=== PATIENT | male | born 1985 | race Caucasian/White ===

== ENCOUNTER 2016-05-23 10:51 | Emergency (ER) | payer OTHER ==
[2016-05-23 10:57] VITALS: BP 181/110
--- NOTE | 2016-05-23 12:08 | PROVIDER DOCUMENTATION ---
HPI-Musculoskeletal Pain/Inj - GENERAL Chief Complaint: Back Pain Stated Complaint: BACK PAIN Time Seen by Provider: 05/23/16 11:57 Source: patient - HX OF PRESENT ILLNESS-MUSKULOSKELTAL Nature of Presenting Problem: patient is a 30 y/o M that presents to the ER with lower back pain (chronic in nature). Has appointment with Spine/Neuro in June. patient's pain got worse this am and took Allen 10mg that is prescribed by Quality of Pain: reports: aching, dull Severity in ED: moderate Onset/Duration: unsure Timing: still present, constant Modifying Factors: worse with: movement Any recent injury?: No Locality of Occurance: Home Similar Symptoms Previously?: Yes Recently seen or treated by another doctor?: Yes - BACK & NECK PAIN/INJURY Back/Neck Pain Location: reports: lumbar spine Context / Method of Injury: reports: overuse Associated Symptoms: reports: lower back pain. denies: loss of bladder control , loss of bowel control History of Chronic Neck or Back Pain?: Yes Review of Systems - Adult - REVIEW OF SYSTEMS - ADULT Constitutional: reports: no symptoms reported Eyes: reports: no symptoms reported Ears, Nose, Mouth & Throat: reports: no symptoms reported Cardiovascular: reports: no symptoms reported Respiratory: reports: no symptoms reported Gastrointestinal: reports: no symptoms reported Genitourinary: reports: no symptoms reported Musculoskeletal: reports: see HPI Integumentary: reports: no symptoms reported Neurological: reports: no symptoms reported Psychiatric: reports: no symptoms reported Endocrine: reports: no symptoms reported Hematologic/Lymphatic: reports: no symptoms reported Allergic/Immunologic: reports: no symptoms reported All Other Systems: Reviewed and Negative Past History - Adult - PAST MEDICAL HISTORY-ADULT Review of Records: reports: Old Records Reviewed, Nursing Assessment Review, Medications Reviewed Major Childhood Illnesses: reports: denies history Cardiovascular: reports: blood clots, HTN Other Conditions: reports: denies history - PRIOR SURGERIES/PROCEDURES Surgical/Procedure History: reports: appendectomy - PRIOR HOSPITALIZATIONS Prior Hospitalizations: reports: none - IMMUNIZATION STATUS Childhood Immunizations: See Nurse Assessment Flu Vaccine: See Nurse Assessment - FAMILY HISTORY Family History: reviewed, not pertinent - SOCIAL HISTORY Smoking: cigarettes, less than 1 pack/day Alcohol Use Frequency: occasionally Living Situation: family Physical Exam-Injury Related - Physical Exam-Injury Related Initial Vital Signs Reviewed: Yes General Appearance: alert, no apparent distress Eyes: PERRL/EOMI, pink conjunctivae Head, Ears, Nose, Mouth & Throat: normocephalic/atraumatic, moist mucous membranes, normal ENT inspection Neck: non-tender, full range of motion, normal inspection Respiratory: lungs clear, normal breath sounds, no respiratory distress, no accessory muscle use Cardiovascular: regular rate, rhythm, no edema, no murmur Abdominal Exam: normal bowel sounds, non tender, soft Back Exam: decreased range of motion, vertebral tenderness (mild lower lumbar). negative: lordosis, scoliosis Extremity: normal range of motion, normal inspection, no pedal edema, normal capillary refill Integumentary: normal color, warm/dry Neurologic: grossly normal, no motor/sensory deficits Psych/Mental Status: normal mood/affect, normal thought content, normal thought process, oriented x 3 - [place]ow Coma Score Best Eye Response ([place]): (4) open spontaneously Best Verbal Response ([place]): (5) oriented Best Motor Response ([place]): (6) obeys commands [place] Total: 15 Progress - PLAN OF CARE/RESULTS Progress/Plan/Lab Results: Vital Signs Temp Pulse Resp BP Pulse Ox 05/23/16 10:55 97.9 F 103 H 18 181/110 97 No Known Allergies Allergy (Verified 08/17/15 21:35) Lisinopril/Hydrochlorothiazide [Lisinopril-Hctz 20-25 mg Tab] 2 mg PO DAILY 01/21 Hydrocodone/Acetaminophen [Allen 10-325 Tablet] 1 each PO DIRECTED 09/15/14 Alprazolam [Xanax] 1 mg PO BID PRN PRN 08/17/15 Clonidine [Catapres] 0.1 mg PO DAILY 08/17/15 Cyclobenzaprine [Flexeril] 10 mg PO TID PRN #10 tablet 08/17/15 Orphenadrine [Norflex] 100 mg PO BID PRN #20 tablet 08/17/15 pt will be d/c home with rx f/u with pcp and spine neuro(has appointment) pt was clinically stable, Departure - Departure Time of Disposition Order: 12:08 DIAGNOSIS: Back pain Qualifiers: Back pain location: low back pain Chronicity: acute Back pain laterality: midline Sciatica presence: without sciatica Qualified Code(s): M54.5 - Low back pain Disposition: HOME 01 Certified Medical Emergency: Emergent Condition: Stable Additional Instructions: ED Follow Up Instructions: You have been treated by a care provider in the Emergency Department. These instructions are being provided to you so you can have an understanding of how to care for yourself upon discharge. Upon discharge from the Emergency Department, you are responsible for making arrangements for follow-up care by a physician of your choice. Take all prescribed medications as directed. Return to the Emergency Department immediately for any new or worsening symptoms. You may call the Physician Referral phone number at [phone] to obtain a list of Physicians who are taking new patients. Referrals: Henry Martinez MD [Primary Care Provider] - Call for Appoint. 1-2days Forms: Return to School/Parent Work Instructions: Back Exercises, Back Pain, Adult, [id number] Attestation - Scribe Verification/Attestation Scribe:: Mikey Urias Acting as Scribe for:: Js Logan Scribe documention review:: This chart was documented by a scribe and accurately reflects the service the provider performed and the decisions made by the provider. Physician Attestation - Physician Attestation I, the provider, attest to the following statement:: Js Logan Physician documentation Attestation:: This documentation recorded by the scribe accurately reflects the service I personally performed and the decisions made by me.
== END 2016-05-23 12:23 | disposition home or self-care (01) ==
LOC: P.ED 10:51
DX: M54.5 Low back pain (principal); G89.29 Other chronic pain; I10 Essential (primary) hypertension; F17.210 Nicotine dependence, cigarettes, uncomplicated; Z86.718 Personal history of other venous thrombosis and embolism
CPT/HCPCS: 99282